=== PATIENT | female | born 1935 | race Caucasian/White ===

== ENCOUNTER → 2016-11-09 | Outpatient (CLI) | payer MEDICARE ==
[2016-11-09 10:20] LABS: Basophils # (auto) 0 uL; Basophils % (auto) 0.8 % (0.0-2.0); CONDITION Y; Eosinophils # (auto) 0.1 uL; Eosinophils % (auto) 2.3 % (0.0-7.0); Hematocrit 41.3 % (36.0-46.0); Hemoglobin 13.6 g/dL (12.2-16.2); Lymphocytes # (auto) 1.8 uL; Lymphocytes % (auto) 32.1 % (10.0-50.0); Mean Corpuscular Hemoglobin 27.4 pg (28.0-32.0); Mean Corpuscular Hgb Conc. 32.8 g/dL (32.0-36.0); Mean Corpuscular Volume 83.6 fL (80.0-100.0); Mean Platelet Volume 9.6 fL (7.4-10.4); Monocytes # (auto) 0.5 uL; Monocytes % (auto) 8.1 % (0.0-12.0); Neutrophils # (auto) 3.2 uL; Neutrophils % (auto) 56.7 % (37.0-80.0); Platelet Count (auto) 193 10^3/uL (140-450); Red Cell Distribution Width 14.1 % (11.6-16.0); White Blood Cell 5.6 10^3/uL (4.4-10.8)
[2016-11-09 10:27] LABS: Urine Bilirubin Negative (Negative); Urine Blood Negative /uL (Negative); Urine Color Yellow (Yellow); Urine Glucose Normal (Normal); Urine Ketone Negative (Negative); Urine Mucus FEW (None Seen); Urine Nitrite Negative (Negative); Urine RBC <1 /hpf (0 - 4); Urine Squamous Epithelial Cell FEW /hpf (<5); Urine Urobilinogen Normal (Negative); Urine pH 6.5 (5.0-8.0)
[2016-11-09 11:03] LABS: Albumin 3.7 g/dL (3.4-5.0); BUN/Creatinine Ratio 10.8; Bilirubin, Total 0.5 mg/dL (0.2-1.0); Calcium 8.7 mg/dL (8.5-10.1); Potassium 4.1 mmol/L (3.5-5.1); Total Protein 7.2 g/dL (6.4-8.2)
== END | disposition home or self-care (01) ==
LOC: LAB 09:57
PROVIDERS: ATTEND Internal Medicine
DX: E78.00 Pure hypercholesterolemia, unspecified (principal); M81.0 Age-related osteoporosis without current pathological fracture
CPT/HCPCS: 36415; 80053; 80061; 81001; 82306; 84439; 84443; 85025; 85652

== ENCOUNTER → 2017-05-10 | Outpatient (CLI) | payer MEDICARE, OTHER | END | disposition home or self-care (01) | LOC: LAB 11:54 | PROVIDERS: ATTEND Physician Assistant | DX: R39.9 Unspecified symptoms and signs involving the genitourinary system (principal) | CPT/HCPCS: 87086 ==

== ENCOUNTER → 2017-06-28 | Outpatient (CLI) | payer MEDICARE, OTHER ==
[2017-06-28 11:23] LABS: Eosinophils # (auto) 0.2 uL; Hemoglobin 13.5 g/dL (12.2-16.2); Neutrophils # (auto) 2.4 uL
[2017-06-28 11:25] LABS: Basophils # (auto) 0.1 uL; Eosinophils % (auto) 3.7 % (0.0-7.0); Hematocrit 41.4 % (36.0-46.0); Lymphocytes # (auto) 2.3 uL; Lymphocytes % (auto) 42.7 % (10.0-50.0); Mean Corpuscular Hemoglobin 26.7 pg (28.0-32.0); Mean Corpuscular Hgb Conc. 32.5 g/dL (32.0-36.0); Mean Corpuscular Volume 82.2 fL (80.0-100.0); Monocytes # (auto) 0.4 uL; Monocytes % (auto) 7.6 % (0.0-12.0); Platelet Count (auto) 184 10^3/uL (140-450); Red Blood Cells 5.03 10^6/uL (4.0-5.20); Red Cell Distribution Width 13.7 % (11.8-14.3); White Blood Cell 5.4 10^3/uL (4.4-10.8)
[2017-06-28 13:08] LABS: Albumin 3.7 g/dL (3.4-5.0); Bilirubin, Total 0.4 mg/dL (0.2-1.0); Calcium 9.1 mg/dL (8.5-10.1); Potassium 3.8 mmol/L (3.5-5.1); Total Protein 7.5 g/dL (6.4-8.2)
== END | disposition home or self-care (01) ==
LOC: LAB 10:57
PROVIDERS: ATTEND Internal Medicine
DX: N18.3 Chronic kidney disease, stage 3 (moderate) (principal); E03.9 Hypothyroidism, unspecified
CPT/HCPCS: 36415; 80053; 84439; 84443; 85025

== ENCOUNTER 2021-05-01 23:25 | Emergency (ER) | payer OTHER ==
[~2021-05-01] VITALS: Ht 160 cm; Wt 56.2 kg
[2021-05-02 02:45] LABS: Basophils # (auto) 0 10 ^3/uL (0-0.2); Basophils % (auto) 0.8 % (0.0-2.0); Eosinophils # (auto) 0.1 10 ^3/uL (0-0.8); Eosinophils % (auto) 1.9 % (0.0-7.0); Hematocrit 44.2 % (36.0-46.0); Hemoglobin 14.2 g/dL (12.2-16.2); Lymphocytes % (auto) 39.6 % (10.0-50.0); Mean Corpuscular Hemoglobin 26.6 pg (28.0-32.0); Mean Corpuscular Hgb Conc. 32.1 g/dL (32.0-36.0); Mean Corpuscular Volume 82.9 fL (80.0-100.0); Monocytes # (auto) 0.5 10 ^3/uL (0-1.3); Monocytes % (auto) 9.3 % (0.0-12.0); Neutrophils # (auto) 2.4 10 ^3/uL (1.6-8.6); Neutrophils % (auto) 48.4 % (37.0-80.0); Nucleated Red Blood Cells % 0.1 %; Red Blood Cells 5.33 10^6/uL (4.0-5.20); Red Cell Distribution Width 13.4 % (11.8-14.3)
[2021-05-02 03:03] LABS: Albumin 4.1 g/dL (3.4-5.0); Potassium 3.6 mmol/L (3.5-5.1)
[2021-05-02 03:08] LABS: BUN/Creatinine Ratio 6.5; Bilirubin, Total 0.5 mg/dL (0.2-1.0)
[2021-05-02 04:50] VITALS: BP 162/76
== END 2021-05-02 05:08 | disposition home or self-care (01) ==
LOC: ER 23:25
DX: R42 Dizziness and giddiness (principal)
CPT/HCPCS: 36415; 80053; 84484; 85025; 93005

== ENCOUNTER 2021-07-03 12:10 | Emergency (ER) | payer OTHER ==
[~2021-07-03] VITALS: Ht 160 cm; Wt 53.1 kg
[2021-07-03 13:24] LABS: Basophils # (auto) 0 10 ^3/uL (0-0.2); Basophils % (auto) 0.6 % (0.0-2.0); Eosinophils # (auto) 0 10 ^3/uL (0-0.8); Eosinophils % (auto) 0.5 % (0.0-7.0); Hemoglobin 14.5 g/dL (12.2-16.2); Lymphocytes # (auto) 2.4 10 ^3/uL (0.4-5.4); Lymphocytes % (auto) 30.8 % (10.0-50.0); Mean Corpuscular Hemoglobin 26.9 pg (28.0-32.0); Mean Corpuscular Hgb Conc. 32.3 g/dL (32.0-36.0); Monocytes # (auto) 0.9 10 ^3/uL (0-1.3); Neutrophils # (auto) 4.4 10 ^3/uL (1.6-8.6); Neutrophils % (auto) 56.1 % (37.0-80.0); Nucleated Red Blood Cells % 0.1 %; Red Blood Cells 5.42 10^6/uL (4.0-5.20); Red Cell Distribution Width 13.9 % (11.8-14.3); White Blood Cell 7.9 10^3/uL (4.4-10.8)
[2021-07-03 13:42] LABS: Albumin 3.9 g/dL (3.4-5.0); Calcium 9.5 mg/dL (8.5-10.1); Magnesium 2.8 mg/dL (1.6-2.6); Potassium 3.6 mmol/L (3.5-5.1)
[2021-07-03 13:49] LABS: BUN/Creatinine Ratio 18.3; Bilirubin, Total 0.5 mg/dL (0.2-1.0); Total Protein 7.4 g/dL (6.4-8.2)
[2021-07-03] MEDS ORDERED: IOHEXOL 350 MG/ML 100ML IJ ONE (17:50)
[2021-07-03 20:48] VITALS: BP 121/78
== END 2021-07-03 20:50 | disposition home or self-care (01) ==
LOC: ER 12:10
DX: R06.00 Dyspnea, unspecified (principal); E03.9 Hypothyroidism, unspecified
CPT/HCPCS: 36415; 71045; 71275; 80053; 83735; 84484; 85025; 85379; 93005; 99285; Q9967